=== PATIENT | female | born 1975 | race Caucasian/White ===

== ENCOUNTER 2022-11-16 08:13 | Emergency (ER) | payer BC ==
[~2022-11-16] VITALS: Ht 160 cm; Wt 68.0 kg
[2022-11-16 08:13] VITALS: BP_SYST 166
--- NOTE | 2022-11-16 08:27 | NUR ---
Pt bib self from home. Chief complaint chest pain pressure onset this am. Pt states pain on inspiration of breathing and exertion "I lifted a medium sauce mejia and felt a pressure in my chest to the shoulder". Pt states Covid positive with minor symptoms and reactive cough to inability to clear breaths. Breath sounds are clear even unlabored breathing.
--- NOTE | 2022-11-16 08:50 | NUR ---
ER at bedside examining patient.
--- NOTE | 2022-11-16 09:09 | NUR ---
Pt bib self from home. CC Chest wall pain related to Covid diagnosis of one week. Pt is aaox3 with skin intact cap return less than 3 seconds.
[2022-11-16 09:14] LABS: BASOPHILS # (AUTO) 0.1 K/uL (0.0-0.2); BASOPHILS % (AUTO) 0.8 % (0.0-2.0); EOSINOPHILS # (AUTO) 0.2 K/uL (0.0-0.4); EOSINOPHILS % (AUTO) 2.7 % (0.0-4.0); HEMATOCRIT 46.6 % (36-48); HEMOGLOBIN 15.5 g/dL (12.0-16.0); LYMPHOCYTES # (AUTO) 1.9 K/uL (1.0-5.5); LYMPHOCYTES % (AUTO) 27.7 % (20.5-51.5); MEAN CORPUSCULAR HEMOGLOBIN 28 pg (27-31); MEAN CORPUSCULAR HGB CONC 33 % (32-36); MEAN CORPUSCULAR VOLUME 84 fL (79.0-98.0); MONOCYTES # (AUTO) 0.5 K/uL (0.0-1.0); MONOCYTES % (AUTO) 7.2 % (1.7-9.3); NEUTROPHILS # (AUTO) 4.1 K/uL (1.8-7.7); NEUTROPHILS % (AUTO) 61.6 % (40.0-70.0); PLATELET COUNT (AUTO) 205 K/uL (130-430); RED BLOOD CELL COUNT(AUTO) 5.53 MIL/uL (4.2-6.2); RED CELL DISTRIBUTION WIDTH 12.8 % (9.0-15.0); WHITE BLOOD COUNT (AUTO) 6.7 K/uL (4.8-10.8)
--- NOTE | 2022-11-16 09:15 | NUR ---
Patient xray done bedside by radiological team.
[2022-11-16 09:31] LABS: ANION GAP 5 (5-15); CALCIUM 8.6 mg/dL (8.4-11.0); CHLORIDE 105 mmol/L (98-107); CREATININE 0.61 mg/dL (0.55-1.30); GFR AFRICAN AMERICAN 135 mL/min (>90); GLUCOSE 107 mg/dL (70-99); UREA NITROGEN, BLOOD 16 mg/dL (8-21)
[2022-11-16 09:38] LABS: ALANINE AMINOTRANSFERASE 31 U/L (12-78); ALBUMIN 3.7 g/dL (3.4-4.8); ASPARTATE AMINOTRANSFERASE 17 U/L (10-37); TOTAL BILIRUBIN 0.4 mg/dL (0.0-1.0)
--- NOTE | 2022-11-16 09:56 | NUR ---
Patient given written and verbal discharge instructions and verbalizes understanding. ER MD discussed with patient the results and treatment provided. Patient in stable condition. ID arm band removed. Opportunity for questions provided and answered. Medication side effect fact sheet provided.
[2022-11-16 10:00] VITALS: BP_SYST 166
== END 2022-11-16 09:56 | disposition home or self-care (01) ==
LOC: SED 08:13
DX: R07.89 Other chest pain (principal); Z79.899 Other long term (current) drug therapy
CPT/HCPCS: 36415; 71045; 80053; 82550; 84484; 84703; 85025; 93005; 99285